=== PATIENT | male | born 1995 | race Caucasian/White ===

== ENCOUNTER 2024-02-16 23:25 | Emergency (ER) | payer BC ==
[~2024-02-16] VITALS: Ht 185.4 cm; Wt 106.2 kg
[2024-02-17 01:35] VITALS: BP 137/80; TEMP 97.3; O2SAT 98
[2024-02-17] MEDS: ACETAMINOPHEN 500 MG TAB PO ONE (01:36)
[2024-02-17] MEDS: CIPRODEX OTIC SUSP 7.5ML AD ONE (01:36)
[2024-02-17] MEDS: AUGMENTIN 875 MG TAB PO ONE (01:36)
[2024-02-17] MEDS ORDERED: AMOX875T2 PO (01:45)
[2024-02-17] MEDS ORDERED: CIPR7.5D2 OT (01:45)
== END 2024-02-17 01:55 | disposition home or self-care (01) ==
LOC: M ED 23:25
DX: H66.011 Acute suppurative otitis media with spontaneous rupture of ear drum, right ear (principal); Z87.891 Personal history of nicotine dependence; Z79.2 Long term (current) use of antibiotics